=== PATIENT | male | born 1990 | race Caucasian/White ===

== ENCOUNTER 2020-08-17 15:00 | Emergency (ER) | payer OTHER, SELFPAY ==
[2020-08-17 15:11] VITALS: BP 140/86; PULSE 94; RESP 16; TEMP 37; O2SAT 98
--- NOTE | 2020-08-17 15:30 | DI.RAD_ITS ---
EXAM: XR SHOULDER LT COMPLETE 2+V CLINICAL HISTORY: pain, trauma TECHNIQUE: 2D digital imaging was performed. COMPARISON: No exams were available for comparison FINDINGS: There is widening of the AC joint. The coracoclavicular distance is also widened. No fracture or gl enohumeral joint dislocation is seen. Visualized portions of the ribs appear intact. No pneumothora x is seen. IMPRESSION: Acromioclavicular joint separation.
--- NOTE | 2020-08-17 15:30 | DI.RAD_ITS ---
EXAM: XR CLAVICLE LT CLINICAL HISTORY: trauma, pain TECHNIQUE: 2D digital imaging was performed. COMPARISON: CR,XR XR SHOULDER LT COMPLETE 2+V from 08/17/2020 FINDINGS: There is widening of the AC joint. The distal end of the clavicle projects superior to the acromion. There is widening of the coracoclavicular distance. No fractures are identified. IMPRESSION: Acromioclavicular separation.
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
[2020-08-17 17:07] VITALS: RESP 14; O2SAT 98
--- NOTE | 2020-08-17 17:07 | DI.VRAD_ITS ---
PROCEDURE INFORMATION: Exam: XR Left Shoulder Exam date and time: 08/17/2020 4:48 PM Age: 29 years old Clinical indication: Other: Trauma, pain TECHNIQUE: Imaging protocol: XR Left shoulder. Views: 2 or more views. COMPARISON: No relevant prior studies available. FINDINGS: Bones/joints: Slightly increased acromioclavicular distance of 9.6 mm. Increased coracoclavicular distance of 21.4 cm. No acutely displaced fractures. No aggressive osseous lesions. Soft tissues: No significant soft tissue swelling. Other findings: Visualized chest appears unremarkable. IMPRESSION: Findings favor acute acromioclavicular injury, most probably ligamentous injury. Correlation with MRI is recommended if clinically warranted. No acutely displaced fractures are noted. Dictated and Authenticated by: Merrill Cordero MD. Ordering:TONY Salinas MD
--- NOTE | 2020-08-17 17:07 | DI.VRAD_ITS ---
PROCEDURE INFORMATION: Exam: XR Left Clavicle, Complete Exam date and time: 08/17/2020 4:51 PM Age: 29 years old Clinical indication: Other: Trauma, pain TECHNIQUE: Imaging protocol: XR Left clavicle complete. Any number of views. COMPARISON: No relevant prior studies available. FINDINGS: Bones/joints: Slightly increased acromioclavicular distance of 9.6 mm. Increased coracoclavicular distance of 21.4 cm. No acutely displaced fractures. No aggressive osseous lesions. Soft tissues: No significant soft tissue swelling. Other findings: Visualized chest appears unremarkable. IMPRESSION: Findings favor acute acromioclavicular injury, most probably ligamentous injury. Correlation with MRI is recommended if clinically warranted. No acutely displaced fractures are noted. Dictated and Authenticated by: Merrill Cordero MD. Ordering:TONY Salinas MD
[2020-08-17 17:19] VITALS: BP 131/76; PULSE 68; RESP 20; O2SAT 100
== END 2020-08-17 17:36 | disposition home or self-care (01) ==
PROVIDERS: Emergency Provider Student in an Organized Health Care Education/Training Program; PCP Family Medicine
DX: S43.121A Dislocation of right acromioclavicular joint, 100%-200% displacement, initial encounter (principal); V18.0XXA Pedal cycle driver injured in noncollision transport accident in nontraffic accident, initial encounter; Y93.55 Activity, bike riding
CPT/HCPCS: 23540; 73000; 73030; L3650